=== PATIENT | female | born 1955 | race African-American/Black ===

== ENCOUNTER → 2020-10-23 | Day surgery (SDC) | payer BC ==
[2020-10-20 09:29] LABS: BASOPHILS # (AUTO) 0.1 (0.0-0.1); BASOPHILS % 0.7 % (0.0-1.0); EOSINOPHILS # (AUTO) 0.1 (0.0-0.4); HEMATOCRIT 40.1 % (34.2-44.1); LYMPHOCYTES # (AUTO) 1.7 (1.0-3.2); LYMPHOCYTES % 24.7 % (18.0-39.1); MEAN CORPUSCULAR HEMOGLOBIN 28.8 pg (28-32); MEAN CORPUSCULAR HGB CONC 32.4 g/dL (31-35); MEAN CORPUSCULAR VOLUME 88.9 fL (81-99); MONOCYTES # (AUTO) 0.6 (0.2-0.8); MONOCYTES % 8.6 % (4.4-11.3); NEUTROPHILS # (AUTO) 4.3 (2.1-6.9); NEUTROPHILS % 63.6 % (38.7-80.0); PLATELET COUNT 246 x10e3/uL (140-360); RED BLOOD COUNT 4.51 x10e6/uL (3.6-5.1); RED CELL DISTRIBUTION WIDTH 12.8 % (11.7-14.4)
[~2020-10-23] MED LIST: AMLODIPINE BESYL5 MG PO; BUPROPION XL150 MG PO; EPHEDRINE SULFATE INJ 50 MG/ML VIAL ONE; GLUCAGON FOR INJ 1 MG VIAL ONE; INSULIN REGULAR, HUMAN 100 UNIT/1 ML ONE; LEXAPRO5 MG PO; LIDOCAINE HCL 2% LOCAL INJ 5 ML SDV VIAL INJ ONE; METFORMIN HCL500 M2 PO; NEXIUM40 MG PO; PROPOFOL IV EMULSION 10 MG/ML 20 ML VIAL ONE; SODIUM CHLORIDE 0.9% 50ML 50 ML ONE; ZESTRIL10 MG PO; ZOLPIDEM TARTRAT5 MG PO
[2020-10-23 12:05] VITALS: BP 114/81
[2020-10-23 12:06] LABS: WBC,FECAL (FECAL LACTOFERRIN) NEGATIVE (NEGATIVE)
[2020-10-23 13:12] LABS: ALBUMIN 4.1 g/dL (3.5-5.0); ALBUMIN/GLOBULIN RATIO 1.2 (0.8-2.0); ANION GAP 17.5 mmol/L (8-16); CALCIUM 9.4 mg/dL (8.4-10.2); CREATININE, SERUM 1.63 mg/dL (0.57-1.11); POTASSIUM 4.5 mmol/L (3.5-5.1)
[2020-10-23 14:47] LABS: C DIFFICILE TOXIN A&B AMP PROB NEGATIVE (NEGATIVE)
== END | disposition home or self-care (01) ==
LOC: OR 08:56
PROVIDERS: ATTEND Internal Medicine Gastroenterology
DX: K21.9 Gastro-esophageal reflux disease without esophagitis (principal); D3A.026 Benign carcinoid tumor of the rectum; D13.2 Benign neoplasm of duodenum; K29.50 Unspecified chronic gastritis without bleeding; K52.9 Noninfective gastroenteritis and colitis, unspecified; K31.89 Other diseases of stomach and duodenum; K20.90 Esophagitis, unspecified without bleeding; I85.00 Esophageal varices without bleeding; K44.9 Diaphragmatic hernia without obstruction or gangrene; K64.8 Other hemorrhoids; E11.9 Type 2 diabetes mellitus without complications; I10 Essential (primary) hypertension; Z01.810 Encounter for preprocedural cardiovascular examination; Z01.812 Encounter for preprocedural laboratory examination; Z20.822 Contact with and (suspected) exposure to COVID-19; Z79.84 Long term (current) use of oral hypoglycemic drugs; Z68.33 Body mass index [BMI] 33.0-33.9, adult; Q40.8 Other specified congenital malformations of upper alimentary tract
CPT/HCPCS: 36415 ×2; 43239; 43251; 45380; 45384; 45385; 80053; 82948; 83630; 83993; 85025; 87045; 87177; 87328; 87493; 93005; C9113; J1610; J2001; J2704; U0002; J1817

== ENCOUNTER → 2020-11-20 | Day surgery (SDC) | payer BC ==
[~2020-11-20] MED LIST changes: -EPHEDRINE SULFATE INJ 50 MG/ML VIAL ONE; +FENTANYL CITRATE/PF 100MCG/2 ML INJ ONE; -GLUCAGON FOR INJ 1 MG VIAL ONE; -INSULIN REGULAR, HUMAN 100 UNIT/1 ML ONE; -LIDOCAINE HCL 2% LOCAL INJ 5 ML SDV VIAL INJ ONE; -PROPOFOL IV EMULSION 10 MG/ML 20 ML VIAL ONE; -SODIUM CHLORIDE 0.9% 50ML 50 ML ONE
[2020-11-20 17:20] VITALS: BP 114/78
== END | disposition home or self-care (01) ==
LOC: ENDO 12:02
PROVIDERS: ATTEND Internal Medicine Gastroenterology
DX: D3A.8 Other benign neuroendocrine tumors (principal); K29.70 Gastritis, unspecified, without bleeding; K20.90 Esophagitis, unspecified without bleeding; K21.9 Gastro-esophageal reflux disease without esophagitis; I10 Essential (primary) hypertension; E11.9 Type 2 diabetes mellitus without complications; E66.9 Obesity, unspecified; F41.9 Anxiety disorder, unspecified; Z01.812 Encounter for preprocedural laboratory examination; Z20.822 Contact with and (suspected) exposure to COVID-19; Z79.84 Long term (current) use of oral hypoglycemic drugs; Z68.33 Body mass index [BMI] 33.0-33.9, adult
CPT/HCPCS: 36415; 45331; 45335; 82948; J3010; U0002; 45330